=== PATIENT | female | born 1940 | race African-American/Black ===

== ENCOUNTER 2017-07-13 06:44 | Inpatient (IN) | payer MEDICARE, MEDICAID ==
[~2017-07-13] VITALS: Ht 157.5 cm; Wt 80.0 kg
[2017-07-13] MEDS ORDERED: LABETALOL HCL 5 MG/ML ML 20ML VIAL IV ONE ×2 (08:45→13:45)
[2017-07-13] MEDS ORDERED: MORPHINE SULFATE 4 MG/ML SYR/VIAL ONE (09:42)
[2017-07-13] MEDS ORDERED: MORPHINE SULF INJ 2 MG/ML SYRINGE 1ML IV ONE (09:45)
[2017-07-13] MEDS ORDERED: ONDANSETRON HCL 4 MG/2 ML VIAL IV ONE (09:45)
[2017-07-13] MEDS ORDERED: LORazepam 2MG/ML-1ML VIAL ONE (09:51)
[2017-07-13] MEDS ORDERED: LORazepam 2MG/ML-1ML VIAL IV ONE (09:51)
[2017-07-13] MEDS ORDERED: SUCCINYLCHOLINE CHLORIDE 20 MG/ML 10ML VIAL IV ONE (10:05)
[2017-07-13] MEDS ORDERED: ETOMIDATE (2MG/ML) 20ML VIAL IV ONE ×3 (10:05→10:45)
[2017-07-13] MEDS ORDERED: MIDAZOLAM DRIP 50 mg/50mL 50 ML IV ONE (10:06)
[2017-07-13 10:09] LABS: Basophils # (auto) 0 uL; Basophils % (auto) 0.4 % (0.0-2.0); Eosinophils # (auto) 0 uL; Hematocrit 47.4 % (36.0-46.0); Hemoglobin 15.8 g/dL (12.2-16.2); Lymphocytes % (auto) 10.6 % (10.0-50.0); Mean Corpuscular Hemoglobin 30.8 pg (28.0-32.0); Mean Corpuscular Hgb Conc. 33.3 g/dL (32.0-36.0); Mean Corpuscular Volume 92.5 fL (80.0-100.0); Monocytes # (auto) 0.9 uL; Neutrophils # (auto) 7.8 uL; Nucleated Red Blood Cells % 0.2 %; Platelet Count (auto) 203 10^3/uL (140-450); Red Blood Cells 5.13 10^6/uL (4.0-5.20); White Blood Cell 9.8 10^3/uL (4.4-10.8)
[2017-07-13] MEDS: MIDAZOLAM DRIP 50 mg/50mL 50 ML IV SCH ×2 (10:15→12:00)
[2017-07-13 10:26] LABS: Albumin 3.8 g/dL (3.4-5.0); BUN/Creatinine Ratio 15.7; Bilirubin, Total 0.9 mg/dL (0.2-1.0); Calcium 9.2 mg/dL (8.5-10.1); Magnesium 1.7 mg/dL (1.6-2.6); Potassium 3.4 mmol/L (3.5-5.1); Total Protein 8.7 g/dL (6.4-8.2)
[2017-07-13] MEDS ORDERED: MIDAZOLAM DRIP 50 mg/50mL 50 ML IV SCH (10:31)
[2017-07-13] MEDS ORDERED: LACTULOSE 20Gm/30ML SOLN PO PRN (11:15)
[2017-07-13] MEDS ORDERED: MORPHINE SULFATE 4 MG/ML SYR/VIAL IV PRN (11:15)
[2017-07-13] MEDS ORDERED: MORPHINE SULF INJ 2 MG/ML SYRINGE 1ML IV PRN ×2 (11:15)
[2017-07-13] MEDS ORDERED: LORazepam 2MG/ML-1ML VIAL IV PRN ×2 (11:15→21:00)
[2017-07-13] MEDS ORDERED: DEXTROSE (50%) 50ML SYRG IV PRN (11:15)
[2017-07-13] MEDS ORDERED: NITROGLYCERIN 0.4 MG SL TAB SL PRN (11:15)
[2017-07-13] MEDS: ENOXAPARIN SOD 40 MG/0.4 ML SYRINGE SC SCH (12:02)
[2017-07-13] MEDS: ASPirin 81 mg TAB NG SCH (12:02)
[2017-07-13] MEDS: PANTOPRAZOLE 40 MG/10 ML VIAL IV SCH (12:02)
[2017-07-13] MEDS: ACCU-CHEK COMFORT CURVE STRIP VI SCH ×3 (12:07→23:52)
[2017-07-13 12:45] LABS: Carcinoembryonic Antigen 2.68 ng/mL (<5.0 OR =); Folate (Folic Acid) 17.08 ng/mL (5.38-24)
[2017-07-13 12:54] LABS: CRP High Sensitivity 0.14 mg/dL (< 0.3)
[2017-07-13] MEDS: LABETALOL HCL 5 MG/ML ML 20ML VIAL IV PRN ×2 (12:59→23:46)
[2017-07-13 13:55] VITALS: BP 171/21
[2017-07-13] MEDS: SODIUM CHLORIDE 0.9% 1,000 ML IV ONE ×2 (15:11→15:53)
[2017-07-13 16:00] VITALS: BP 91/71
[2017-07-13] MEDS ORDERED: IOHEXOL 350 MG/ML 100ML IJ ONE (16:57)
[2017-07-13 19:13] VITALS: BP 117/89
[2017-07-13 19:18] LABS: Urine Bacteria MOD /hpf (None Seen); Urine Blood 2+ /uL (Negative); Urine Mucus FEW (None Seen); Urine Specific Gravity 1.027 (1.001-1.035); Urine WBC 44 /hpf (0 - 5); Urine WBC Clumps PRESENT /hpf (None Seen)
[2017-07-13 19:33] LABS: Amphetamine Screen, Urine NEGATIVE (NEGATIVE); Barbiturate Scree,Urine NEGATIVE (NEGATIVE); Benzodiazephine Screen, Urine POSITIVE (NEGATIVE); Cannabinoid Screen, Urine NEGATIVE (NEGATIVE); Cocaine Screen, Urine NEGATIVE (NEGATIVE); Opiate Scree,Urine NEGATIVE (NEGATIVE); Phencyclidine Screen, Urine NEGATIVE (NEGATIVE)
[2017-07-13] MEDS: SODIUM CHLORIDE 0.9% 1,000 ML IV SCH (20:27)
[2017-07-13 20:56] VITALS: BP 123/88
[2017-07-13] MEDS: ATORVASTATIN 20 MG TAB PO SCH (22:00)
[2017-07-13 22:05] VITALS: BP 148/97
[2017-07-14] VITALS (12 sets, daily range): BP systolic 114–187; BP diastolic 64–122
[2017-07-14] MEDS ORDERED: PROPOFOL 100 ML IV ONE (00:06)
[2017-07-14] MEDS ORDERED: PROPOFOL 100 ML IV SCH (00:06)
[2017-07-14] MEDS: PROPOFOL 100 ML IV SCH ×2 (00:12→09:35)
[2017-07-14] MEDS: SODIUM CHLORIDE 0.9% 1,000 ML IV SCH ×3 (01:09→22:43)
[2017-07-14 05:26] LABS: Basophils # (auto) 0 uL; Basophils % (auto) 0.4 % (0.0-2.0); Eosinophils # (auto) 0 uL; Eosinophils % (auto) 0.3 % (0.0-7.0); Hematocrit 41.2 % (36.0-46.0); Hemoglobin 13.8 g/dL (12.2-16.2); Lymphocytes # (auto) 1.5 uL; Lymphocytes % (auto) 15.9 % (10.0-50.0); Mean Corpuscular Hemoglobin 31.3 pg (28.0-32.0); Mean Corpuscular Hgb Conc. 33.5 g/dL (32.0-36.0); Mean Corpuscular Volume 93.5 fL (80.0-100.0); Monocytes # (auto) 1.4 uL; Monocytes % (auto) 15.2 % (0.0-12.0); Neutrophils # (auto) 6.4 uL; Neutrophils % (auto) 68.2 % (37.0-80.0); Nucleated Red Blood Cells % 0.1 %; Platelet Count (auto) 159 10^3/uL (140-450); Red Blood Cells 4.41 10^6/uL (4.0-5.20); Red Cell Distribution Width 15.1 % (11.8-14.3); White Blood Cell 9.4 10^3/uL (4.4-10.8)
[2017-07-14] MEDS: ACCU-CHEK COMFORT CURVE STRIP VI SCH ×3 (05:43→18:36)
[2017-07-14 05:57] LABS: Albumin 3.1 g/dL (3.4-5.0); BUN/Creatinine Ratio 17.5; Bilirubin, Total 0.7 mg/dL (0.2-1.0); Calcium 8.1 mg/dL (8.5-10.1); Potassium 3.3 mmol/L (3.5-5.1)
[2017-07-14] MEDS ORDERED: POTASSIUM CHL 10% (20 MEQ/15ML) 15ml ORAL SOLN GT ONE (06:30)
[2017-07-14] MEDS: LABETALOL HCL 5 MG/ML ML 20ML VIAL IV PRN ×5 (08:10→23:59)
[2017-07-14] MEDS: ASPirin 81 mg TAB NG SCH (11:03)
[2017-07-14] MEDS: PANTOPRAZOLE 40 MG/10 ML VIAL IV SCH (11:05)
[2017-07-14] MEDS: ENOXAPARIN SOD 40 MG/0.4 ML SYRINGE SC SCH (11:05)
[2017-07-14] MEDS: MIDAZOLAM DRIP 50 mg/50mL 50 ML IV SCH (12:06)
[2017-07-14] MEDS ORDERED: CEFTRIAXONE SODIUM 2 GM in D5W 5% 50 ML IV ONE (14:30)
[2017-07-14] MEDS ORDERED: hydrALAZINE HCL 20 MG/ML VL IV ONE ×2 (16:45)
[2017-07-14] MEDS ORDERED: LABETALOL HCL 5 MG/ML ML 20ML VIAL IV ONE (16:45)
[2017-07-14] MEDS ORDERED: diphenhdrAMINE HCL 50 MG/1 ML VL ONE (18:22)
[2017-07-14] MEDS ORDERED: diphenhdrAMINE HCL 50 MG/1 ML VL IV ONE (18:30)
[2017-07-14] MEDS: OSELTAMIVIR 30 MG CAP PO SCH (21:00)
[2017-07-14] MEDS: ATORVASTATIN 20 MG TAB PO SCH (21:45)
[2017-07-14] MEDS ORDERED: METOPROLOL TARTRATE 50 MG TAB PO ONE (23:15)
[2017-07-15] VITALS (63 sets, daily range): BP systolic 85–209; BP diastolic 63–109
[2017-07-15] MEDS: ACCU-CHEK COMFORT CURVE STRIP VI SCH ×4 (00:02→18:00)
[2017-07-15] MEDS: hydrALAZINE HCL 20 MG/ML VL IV PRN ×5 (00:44→20:23)
[2017-07-15] MEDS ORDERED: CLON0.1T PO (01:13)
[2017-07-15] MEDS ORDERED: ASPI81CH43 PO (01:13)
[2017-07-15] MEDS ORDERED: CARV12.544 PO (01:13)
[2017-07-15] MEDS ORDERED: TRAM50TA2 PO (01:13)
[2017-07-15] MEDS ORDERED: CETI1TAB36 PO (01:13)
[2017-07-15] MEDS ORDERED: ALLO100T PO (01:13)
[2017-07-15] MEDS ORDERED: LOSA100T27 PO (01:13)
[2017-07-15] MEDS ORDERED: TEMA15CA91 PO (01:13)
[2017-07-15] MEDS ORDERED: BENA20TA14 PO (01:13)
[2017-07-15] MEDS ORDERED: METO5TAB56 PO (01:13)
[2017-07-15] MEDS ORDERED: MONT5CHW17 PO (01:13)
[2017-07-15] MEDS ORDERED: ALEN70SO OR (01:13)
[2017-07-15] MEDS ORDERED: PANT1INJ3 PO (01:13)
[2017-07-15] MEDS ORDERED: ALPR0.5T7 PO (01:13)
[2017-07-15] MEDS ORDERED: CHOL20007 OR (01:13)
[2017-07-15] MEDS ORDERED: LORA-622 PO (01:13)
[2017-07-15] MEDS: LABETALOL HCL 5 MG/ML ML 20ML VIAL IV PRN ×5 (02:53→16:46)
[2017-07-15] MEDS ORDERED: MORPHINE SULFATE 4 MG/ML SYR/VIAL IV PRN ×2 (06:15)
[2017-07-15] MEDS: SODIUM CHLORIDE 0.9% 1,000 ML IV SCH ×3 (08:22→20:15)
[2017-07-15] MEDS ORDERED: cefTRIAXone 1GM/10ml IVPUSH 10 ML IV SCH (09:00)
[2017-07-15 10:17] LABS: Albumin 2.9 g/dL (3.4-5.0); Calcium 7.8 mg/dL (8.5-10.1); Potassium 3.7 mmol/L (3.5-5.1)
[2017-07-15 10:19] LABS: BUN/Creatinine Ratio 28.9
[2017-07-15 10:31] LABS: Bilirubin, Total 0.5 mg/dL (0.2-1.0)
[2017-07-15] MEDS ORDERED: LEVOFLOXACIN 500MG 100 ML IV ONE ×2 (10:45→11:08)
[2017-07-15] MEDS: PANTOPRAZOLE 40 MG/10 ML VIAL IV SCH (11:17)
[2017-07-15] MEDS: ASPirin 81 mg TAB NG SCH (11:18)
[2017-07-15] MEDS: ENOXAPARIN SOD 40 MG/0.4 ML SYRINGE SC SCH (11:18)
[2017-07-15] MEDS: OSELTAMIVIR 30 MG CAP PO SCH (12:32)
[2017-07-15] MEDS ORDERED: amLODIPine BESYLATE 5 MG TAB PO ONE (14:00)
[2017-07-15] MEDS: LORazepam 2MG/ML-1ML VIAL IV PRN ×2 (15:15→20:23)
[2017-07-15] MEDS: ATORVASTATIN 20 MG TAB PO SCH (22:12)
[2017-07-16] VITALS (68 sets, daily range): BP systolic 118–176; BP diastolic 55–115
[2017-07-16] MEDS: ACCU-CHEK COMFORT CURVE STRIP VI SCH ×4 (01:09→18:00)
[2017-07-16] MEDS: LABETALOL HCL 5 MG/ML ML 20ML VIAL IV PRN ×2 (02:58→04:55)
[2017-07-16] MEDS: SODIUM CHLORIDE 0.9% 1,000 ML IV SCH ×3 (05:50→15:46)
[2017-07-16] MEDS: hydrALAZINE HCL 20 MG/ML VL IV PRN (06:07)
[2017-07-16] MEDS: PANTOPRAZOLE 40 MG/10 ML VIAL IV SCH (09:30)
[2017-07-16] MEDS: OSELTAMIVIR 75 MG CAP PO SCH ×2 (09:30→22:27)
[2017-07-16] MEDS: LEVOFLOXACIN 500MG 100 ML IV SCH (09:30)
[2017-07-16] MEDS: ENOXAPARIN SOD 40 MG/0.4 ML SYRINGE SC SCH (09:31)
[2017-07-16] MEDS: ASPirin 81 mg TAB NG SCH (09:31)
[2017-07-16] MEDS: amLODIPine BESYLATE 5 MG TAB PO SCH (09:31)
[2017-07-16] MEDS ORDERED: EPINEPHrine HCL 250 ML IV ONE (10:30)
[2017-07-16] MEDS ORDERED: CLINDAMYCIN 600MG IV 50 ML IV ONE (11:30)
[2017-07-16] MEDS ORDERED: IOHEXOL 300 MG/ML 100ML BOTTLE IJ ONE ×2 (15:50→20:03)
[2017-07-16] MEDS ORDERED: IOHEXOL 350 MG/ML 100ML IJ ONE ×2 (15:51→20:03)
[2017-07-16] MEDS: CLINDAMYCIN 600MG IV 50 ML IV SCH (22:26)
[2017-07-16] MEDS: ATORVASTATIN 20 MG TAB PO SCH (22:27)
[2017-07-17] VITALS (39 sets, daily range): BP systolic 116–169; BP diastolic 63–114
[2017-07-17] MEDS: hydrALAZINE HCL 20 MG/ML VL IV PRN ×2 (00:26→07:01)
[2017-07-17] MEDS: ACCU-CHEK COMFORT CURVE STRIP VI SCH ×2 (01:20→07:00)
[2017-07-17] MEDS: SODIUM CHLORIDE 0.9% 1,000 ML IV SCH ×2 (01:20→18:45)
[2017-07-17] MEDS: CLINDAMYCIN 600MG IV 50 ML IV SCH ×3 (03:09→19:34)
[2017-07-17] MEDS ORDERED: ALPRAZolam 0.5 MG TAB PO PRN (10:00)
[2017-07-17] MEDS: OSELTAMIVIR 75 MG CAP PO SCH (10:00)
[2017-07-17] MEDS: BENAZEPRIL HCL 10 MG TAB PO SCH ×2 (10:40→20:00)
[2017-07-17] MEDS: CARVEDILOL 12.5 MG TAB PO SCH ×2 (10:40→20:00)
[2017-07-17] MEDS: PANTOPRAZOLE 40 MG/10 ML VIAL IV SCH (10:40)
[2017-07-17] MEDS: LEVOFLOXACIN 500MG 100 ML IV SCH (10:40)
[2017-07-17] MEDS: ENOXAPARIN SOD 40 MG/0.4 ML SYRINGE SC SCH (10:40)
[2017-07-17] MEDS: ASPirin 81 mg TAB NG SCH (10:40)
[2017-07-17] MEDS: amLODIPine BESYLATE 5 MG TAB PO SCH (10:40)
[2017-07-17] MEDS: ATORVASTATIN 20 MG TAB PO SCH (20:00)
[2017-07-17] MEDS: MONTELUKAST SODIUM 10 MG TAB PO SCH (20:00)
[2017-07-17] MEDS ORDERED: ALPRAZolam 0.5 MG TAB PO ONE (23:00)
[2017-07-18] VITALS (17 sets, daily range): BP systolic 98–176; BP diastolic 64–100
[2017-07-18] MEDS: CLINDAMYCIN 600MG IV 50 ML IV SCH ×3 (04:00→20:00)
[2017-07-18] MEDS: amLODIPine BESYLATE 5 MG TAB PO SCH (09:33)
[2017-07-18] MEDS: BENAZEPRIL HCL 10 MG TAB PO SCH ×2 (09:33→22:34)
[2017-07-18] MEDS: ENOXAPARIN SOD 40 MG/0.4 ML SYRINGE SC SCH (11:06)
[2017-07-18] MEDS: PANTOPRAZOLE 40 MG/10 ML VIAL IV SCH (11:06)
[2017-07-18] MEDS: CARVEDILOL 12.5 MG TAB PO SCH ×2 (11:07→22:34)
[2017-07-18] MEDS: LEVOFLOXACIN 500MG 100 ML IV SCH (11:07)
[2017-07-18] MEDS: ASPirin 81 mg TAB NG SCH (11:07)
[2017-07-18] MEDS: BOOST PLUS 8 ounce PO SCH ×2 (18:00→22:34)
[2017-07-18] MEDS: MONTELUKAST SODIUM 10 MG TAB PO SCH (22:00)
[2017-07-18] MEDS: ATORVASTATIN 20 MG TAB PO SCH (22:34)
[2017-07-18] MEDS: ALPRAZolam 0.5 MG TAB PO SCH (22:35)
[2017-07-19] VITALS (7 sets, daily range): BP systolic 111–154; BP diastolic 57–91
[2017-07-19] MEDS: CLINDAMYCIN 600MG IV 50 ML IV SCH ×3 (04:00→20:31)
[2017-07-19 05:45] LABS: Basophils # (auto) 0 uL; Basophils % (auto) 0.6 % (0.0-2.0); Eosinophils # (auto) 0.3 uL; Eosinophils % (auto) 5.9 % (0.0-7.0); Hematocrit 36.5 % (36.0-46.0); Hemoglobin 12.1 g/dL (12.2-16.2); Lymphocytes # (auto) 1.1 uL; Lymphocytes % (auto) 18.8 % (10.0-50.0); Mean Corpuscular Hemoglobin 31.1 pg (28.0-32.0); Mean Corpuscular Hgb Conc. 33.2 g/dL (32.0-36.0); Mean Corpuscular Volume 93.7 fL (80.0-100.0); Monocytes # (auto) 0.9 uL; Monocytes % (auto) 16.2 % (0.0-12.0); Neutrophils # (auto) 3.4 uL; Neutrophils % (auto) 58.5 % (37.0-80.0); Nucleated Red Blood Cells % 0.1 %; Platelet Count (auto) 210 10^3/uL (140-450); Red Blood Cells 3.89 10^6/uL (4.0-5.20); Red Cell Distribution Width 14.8 % (11.8-14.3); White Blood Cell 5.8 10^3/uL (4.4-10.8)
[2017-07-19 06:02] LABS: Albumin 2.5 g/dL (3.4-5.0); BUN/Creatinine Ratio 31.4; Bilirubin, Total 0.5 mg/dL (0.2-1.0); Calcium 8.4 mg/dL (8.5-10.1); Potassium 3.3 mmol/L (3.5-5.1); Total Protein 6.2 g/dL (6.4-8.2)
[2017-07-19] MEDS: BOOST PLUS 8 ounce PO SCH ×4 (06:10→22:10)
[2017-07-19] MEDS: PROMETHAZINE HCL 25 MG/ML 1ML IV PRN (08:26)
[2017-07-19] MEDS: amLODIPine BESYLATE 5 MG TAB PO SCH (10:00)
[2017-07-19] MEDS: PANTOPRAZOLE 40 MG/10 ML VIAL IV SCH (11:01)
[2017-07-19] MEDS: ASPirin 81 mg TAB NG SCH (11:02)
[2017-07-19] MEDS: ENOXAPARIN SOD 40 MG/0.4 ML SYRINGE SC SCH (11:03)
[2017-07-19] MEDS: LEVOFLOXACIN 500MG 100 ML IV SCH (11:03)
[2017-07-19] MEDS: CARVEDILOL 12.5 MG TAB PO SCH ×2 (11:08→22:33)
[2017-07-19] MEDS: BENAZEPRIL HCL 10 MG TAB PO SCH ×2 (11:14→22:32)
[2017-07-19] MEDS ORDERED: POTASSIUM CHLORIDE 8 MEQ TAB PO ONE (12:30)
[2017-07-19] MEDS: ATORVASTATIN 20 MG TAB PO SCH (22:30)
[2017-07-19] MEDS: MONTELUKAST SODIUM 10 MG TAB PO SCH (22:31)
[2017-07-19] MEDS: ALPRAZolam 0.5 MG TAB PO SCH (22:33)
[2017-07-20] MEDS: CLINDAMYCIN 600MG IV 50 ML IV SCH ×3 (04:21→20:00)
[2017-07-20 05:00] VITALS: BP 135/78
[2017-07-20] MEDS: PROMETHAZINE HCL 25 MG/ML 1ML IV PRN (05:39)
[2017-07-20] MEDS: BOOST PLUS 8 ounce PO SCH ×4 (05:39→22:00)
[2017-07-20 06:39] LABS: Hemoglobin 12.2 g/dL (12.2-16.2); Mean Corpuscular Hemoglobin 30.9 pg (28.0-32.0); Mean Corpuscular Volume 93.7 fL (80.0-100.0); Platelet Count (auto) 229 10^3/uL (140-450); Red Blood Cells 3.96 10^6/uL (4.0-5.20); Red Cell Distribution Width 15.3 % (11.8-14.3); White Blood Cell 6.7 10^3/uL (4.4-10.8)
[2017-07-20 06:58] LABS: Band Neutrophils % (manual) 0; Basophils % (manual) 0 (0.0-2.0); Blast Cells 0; Metamyelocytes % 0; Myelocytes % 0; Promyelocytes % 0; Reactive Lymphocytes 0
[2017-07-20 07:05] LABS: Albumin 2.7 g/dL (3.4-5.0); BUN/Creatinine Ratio 29.1; Bilirubin, Total 0.3 mg/dL (0.2-1.0); Calcium 8.6 mg/dL (8.5-10.1); Potassium 3.5 mmol/L (3.5-5.1); Total Protein 6.4 g/dL (6.4-8.2)
[2017-07-20 08:00] VITALS: BP 148/92
[2017-07-20] MEDS: LEVOFLOXACIN 500MG 100 ML IV SCH (10:00)
[2017-07-20] MEDS: PANTOPRAZOLE 40 MG/10 ML VIAL IV SCH ×2 (10:00→10:23)
[2017-07-20] MEDS: ASPirin 81 mg TAB NG SCH (10:23)
[2017-07-20] MEDS: BENAZEPRIL HCL 10 MG TAB PO SCH ×2 (10:23→22:00)
[2017-07-20] MEDS: ENOXAPARIN SOD 40 MG/0.4 ML SYRINGE SC SCH (10:24)
[2017-07-20] MEDS: CARVEDILOL 12.5 MG TAB PO SCH ×2 (10:24→22:00)
[2017-07-20] MEDS: amLODIPine BESYLATE 5 MG TAB PO SCH (10:24)
[2017-07-20 11:07] VITALS: BP 148/92
[2017-07-20 11:21] LABS: Eosinophils % (manual) 2 (0-7); Lymphocytes % (manual) 16 (10.0-50.0); Monocytes % (manual) 15 (0-12)
[2017-07-20 12:00] VITALS: BP 137/88
[2017-07-20 16:56] VITALS: BP 130/73
[2017-07-20] MEDS: ALPRAZolam 0.5 MG TAB PO SCH (22:00)
[2017-07-20] MEDS: ATORVASTATIN 20 MG TAB PO SCH (22:00)
[2017-07-20] MEDS: MONTELUKAST SODIUM 10 MG TAB PO SCH (22:00)
[2017-07-20 22:02] VITALS: BP 144/98
== END 2017-07-21 00:21 | disposition home or self-care (01) | DRG 871 ==
LOC: EDBD 06:44 → ER 06:44 → TELE 06:45 → ICU WEST 07-15 09:15 → DOU IN ICU 07-18 17:37 → TELE-EAST 07-19 14:20
PROVIDERS: ADMIT Internal Medicine; ATTEND Internal Medicine
PROC: 5A1945Z Respiratory Ventilation, 24-96 Consecutive Hours (ICD-10-PCS; principal; 2017-07-13)
PROC: 0BH17EZ Insertion of Endotracheal Airway into Trachea, Via Natural or Artificial Opening (ICD-10-PCS; 2017-07-13)
DX: A41.9 Sepsis, unspecified organism (principal); G93.41 Metabolic encephalopathy; J96.00 Acute respiratory failure, unspecified whether with hypoxia or hypercapnia; G93.1 Anoxic brain damage, not elsewhere classified; E44.0 Moderate protein-calorie malnutrition; C90.00 Multiple myeloma not having achieved remission; G40.909 Epilepsy, unspecified, not intractable, without status epilepticus; C79.51 Secondary malignant neoplasm of bone; J98.11 Atelectasis; N39.0 Urinary tract infection, site not specified; I13.10 Hypertensive heart and chronic kidney disease without heart failure, with stage 1 through stage 4 chronic kidney disease, or unspecified chronic kidney disease; M41.9 Scoliosis, unspecified; N28.1 Cyst of kidney, acquired; E03.9 Hypothyroidism, unspecified; I16.0 Hypertensive urgency; E66.9 Obesity, unspecified; E87.6 Hypokalemia; F41.9 Anxiety disorder, unspecified; M54.5 Low back pain; G47.33 Obstructive sleep apnea (adult) (pediatric); G89.29 Other chronic pain; I70.0 Atherosclerosis of aorta; K21.9 Gastro-esophageal reflux disease without esophagitis; K76.89 Other specified diseases of liver; M06.9 Rheumatoid arthritis, unspecified; N18.2 Chronic kidney disease, stage 2 (mild); Z79.82 Long term (current) use of aspirin; Z79.899 Other long term (current) drug therapy; Z88.5 Allergy status to narcotic agent; Z88.0 Allergy status to penicillin; Z68.32 Body mass index [BMI] 32.0-32.9, adult
CPT/HCPCS: 31500; 36415; 36600; 51702; 70450; 71010; 71250; 71275; 80053; 80061; 80307; 81001; 82150; 82378; 82550; 82607; 82746; 82805; 82962; 83036; 83690; 83735; 84443; 84484; 85007; 85025; 85027; 85379; 85652; 86141; 87040; 87070; 87077; 87081; 87086; 87088; 87186; 87205; 87400; 93005; 93306; 93886; 93970; 94002; 94003; 96365; 96367; 96375; 97116; 97163; 99291; C9113; G9035; J0171; J0330; J0696; J1956; J2250; J2405; J2704; J3490; J7060